=== PATIENT | female | born 1965 | race Caucasian/White ===

== ENCOUNTER 2019-03-19 13:17 | Emergency (ER) | payer OTHER ==
[~2019-03-19] VITALS: Ht 152.4 cm; Wt 49.0 kg
[~2019-03-19 13:17] MED LIST: ANAPROX DS550 MG PO; AUGMENTIN 875 M1 TA1 PO; BACTRIM DS 8001 TA1 PO; BIAXIN500 MG PO; CLARITIN10 MG PO; CLINDAMYCIN HC300 MG PO; FLEXERIL5 MG PO; HYDROCODONE BIT1 T11 PO; NKHM; ROBITUSSIN AC 110 ML PO; TYLENOL500 MG PO
[2019-03-19 13:18] VITALS: BP 136/68
[2019-03-19] MEDS ORDERED: AUGMENTIN 875-875 MG PO (14:40)
== END 2019-03-19 14:39 | disposition home or self-care (01) ==
LOC: ED 13:17
DX: J01.90 Acute sinusitis, unspecified (principal); F17.200 Nicotine dependence, unspecified, uncomplicated; Z88.1 Allergy status to other antibiotic agents

== ENCOUNTER 2022-08-06 21:01 | Emergency (ER) | payer OTHER ==
[~2022-08-06 21:01] MED LIST changes: +AUGMENTIN 875-875 MG PO
[2022-08-06 22:04] LABS: HEMATOCRIT 39.4 % (37.0-47.0); MEAN CELL VOLUME 91.6 fl (81.0-99.0); MEAN CORPUSCULAR HGB 32.1 pg (27.0-31.0); PLATELET COUNT AUTOMATED 238 10*3/uL (130-400); RED CELL DISTRI WIDTH 12.1 % (0-14.5); WHITE BLOOD COUNT 10.9 10*3/uL (4.8-10.8)
[2022-08-06 22:06] LABS: MANUAL DIFF REFLEX YES
[2022-08-06 22:19] LABS: ALKALINE PHOSPHATASE 92 U/L (46-116); BUN 11 mg/dl (9-23); CHLORIDE 103 mmol/L (98-107); POTASSIUM 3.5 mmol/L (3.4-5.1); SGPT/ALT 59 U/L (10-49); TOTAL PROTEIN 7.2 gm/dL (6.0-8.0)
[2022-08-06 22:24] LABS: ATYPICAL LYMPHS 3 % (0-0); PLATELET SUFFICIENCY NORMAL (NORMAL); TOTAL CELLS COUNTED 100 #CELLS
[2022-08-07 00:08] VITALS: BP 138/85
[2022-08-07] MEDS ORDERED: ZITHROMAX250 MG PO (01:35)
[2022-08-07] MEDS ORDERED: BENZONATATE100 M1 PO (01:35)
[2022-08-07] MEDS ORDERED: PREDNISONE10 M1 PO (01:35)
== END 2022-08-07 01:32 | disposition home or self-care (01) ==
LOC: ED 21:01
PROVIDERS: Emergency Medicine
DX: J44.0 Chronic obstructive pulmonary disease with (acute) lower respiratory infection (principal); J44.1 Chronic obstructive pulmonary disease with (acute) exacerbation; Z88.1 Allergy status to other antibiotic agents; Z98.890 Other specified postprocedural states; Z90.89 Acquired absence of other organs; Z87.891 Personal history of nicotine dependence

== ENCOUNTER 2024-02-24 10:20 | Emergency (ER) | payer OTHER ==
[~2024-02-24] VITALS: Ht 152.4 cm; Wt 52.6 kg
[~2024-02-24 10:20] MED LIST changes: +BENZONATATE100 M1 PO; +PREDNISONE10 M1 PO; +ZITHROMAX250 MG PO
[2024-02-24] MEDS ORDERED: diphenhydrAMINE hydrochloride 50 MG/ML VIAL IV ONE (11:30)
[2024-02-24] MEDS ORDERED: Ketorolac Tromethamine 30 MG/ML VIAL IV ONE (11:30)
[2024-02-24] MEDS ORDERED: Dexamethasone Sodium Phospha 20 MG/5 ML VIAL IV ONE (11:30)
[2024-02-24 11:49] LABS: BASO % 0.5 % (0.0-1.0); EOS % 0.1 % (1.0-4.0); HEMATOCRIT 43.5 % (37.0-47.0); LYMPH # 0.8 10*3/uL (1.3-4.4); LYMPH % 10.7 % (27.0-41.0); MEAN CELL VOLUME 94.8 fl (81.0-99.0); MEAN CORPUSCULAR HGB 32.5 pg (27.0-31.0); MEAN CORPUSCULAR HGB CONC 34.3 g/dl (33.0-37.0); MEAN PLATELET VOLUME 9.3 fl (9.6-12.3); MONO # 0.8 10*3/uL (0.1-1.0); MONO % 10.9 % (3.0-9.0); NEUT # 5.9 10*3/uL (2.3-7.9); NEUT % 77.5 % (47.0-73.0); PLATELET COUNT AUTOMATED 161 10*3/uL (130-400); RED BLOOD COUNT 4.59 10*6/uL (4.10-5.10); RED CELL DISTRI WIDTH 12.7 % (0-14.5); WHITE BLOOD COUNT 7.6 10*3/uL (4.8-10.8)
[2024-02-24 12:09] LABS: BUN 13 mg/dl (9-23); CHLORIDE 105 mmol/L (98-107); POTASSIUM 3.5 mmol/L (3.4-5.1)
[2024-02-24 14:05] VITALS: BP 114/65
[2024-02-24 14:13] LABS: BILIRUBIN 1+ (Negative); BLOOD Trace-Lysed (Negative); CLARITY Cloudy (Clear); COLOR Dark Yellow (Yellow); GLUCOSE Negative (Negative); KETONE Trace (Negative); LEUKO ESTERASE Trace (Negative); NITRITE Negative (Negative); PH 5.5 (4.5-8.0)
[2024-02-24 14:18] LABS: BACTERIA 1+; MUCOUS 1+; WBC 31-40 wbc/hpf (0-5)
[2024-02-24] MEDS ORDERED: ACETAMINOPHEN 325 MG TAB PO ONE (14:25)
[2024-02-24] MEDS ORDERED: SEPTDS PO (14:36)
== END 2024-02-24 14:55 | disposition home or self-care (01) ==
LOC: ED 10:20
PROVIDERS: Physician Assistant Medical
DX: N39.0 Urinary tract infection, site not specified (principal); Z20.822 Contact with and (suspected) exposure to COVID-19; M79.604 Pain in right leg; M79.605 Pain in left leg; M79.10 Myalgia, unspecified site; J02.9 Acute pharyngitis, unspecified; R50.9 Fever, unspecified; R05.9 Cough, unspecified; L53.9 Erythematous condition, unspecified; F17.290 Nicotine dependence, other tobacco product, uncomplicated; Z88.1 Allergy status to other antibiotic agents; Z90.89 Acquired absence of other organs; Z98.890 Other specified postprocedural states